=== PATIENT | female | born 1955 | race Hispanic/Latino ===

== ENCOUNTER 2019-05-10 09:25 | Outpatient (CLI) | payer BC ==
--- NOTE | 2019-05-10 09:46 | RAD ---
XR Chest Pa Lat STANDARD HISTORY: Acute bronchitis COMPARISON: None FINDINGS: The heart size is normal. The lungs are well expanded without focal areas of consolidation, pneumothorax or pleural effusions. There is a plate of linear atelectasis in the left perihilar region. IMPRESSION: No radiographic evidence of pneumonia.
== END 2019-05-10 09:26 | disposition home or self-care (01) ==
LOC: BICRAD 09:25
PROVIDERS: ATTEND Family Medicine
DX: J20.9 Acute bronchitis, unspecified (principal)
CPT/HCPCS: 71046

== ENCOUNTER 2019-08-09 14:40 | Outpatient (CLI) | payer BC ==
--- NOTE | 2019-08-09 15:44 | ULT ---
Bilateral renal ultrasound CLINICAL INDICATION: Left flank pain. COMPARISON: 04/22/2016 FINDINGS: Right kidney: There is no evidence of a renal mass, renal calculus, or hydronephrosis seen. The right kidney measures 11.5 cm x 4.9 cm. Left kidney: There is mild prominence of a left extrarenal pelvis without overt hydronephrosis. No re nal mass, calculus, or perinephric fluid collection is seen. No renal cortical thinning is identified.The left kidney measures 12.3 cm x 1.8 cm. Urinary bladder: Within normal limits for degree of distention with urinary bladder volume of 118.78 mL. No post void residual is seen. IMPRESSION: No evidence of hydronephrosis.
== END 2019-08-09 14:41 | disposition home or self-care (01) ==
LOC: BICULT 14:40
PROVIDERS: ATTEND Family Medicine
DX: N20.0 Calculus of kidney (principal)
CPT/HCPCS: 76770; 81003; 87086

== ENCOUNTER 2020-09-14 10:30 | Outpatient (CLI) | payer BC | END 2020-09-14 10:31 | disposition home or self-care (01) | LOC: LAB 10:30 | PROVIDERS: ATTEND Nurse Practitioner Family | DX: R30.0 Dysuria (principal) | CPT/HCPCS: 81001; 87077; 87086; 87186 ==

== ENCOUNTER 2020-12-19 09:46 | Outpatient (CLI) | payer MEDICARE, BC | END 2020-12-19 09:47 | disposition home or self-care (01) | LOC: BICRAD 09:46 | PROVIDERS: ATTEND Family Medicine | DX: M06.9 Rheumatoid arthritis, unspecified (principal); M19.042 Primary osteoarthritis, left hand; M19.032 Primary osteoarthritis, left wrist; M19.041 Primary osteoarthritis, right hand; M19.031 Primary osteoarthritis, right wrist ==

== ENCOUNTER 2021-10-27 08:23 | Outpatient (CLI) | payer MEDICARE | END 2021-10-27 08:24 | disposition home or self-care (01) | LOC: NM 08:23 | PROVIDERS: ATTEND Otolaryngology Plastic Surgery within the Head & Neck | DX: E34.9 Endocrine disorder, unspecified (principal) | CPT/HCPCS: 78072; A9500 ==

== ENCOUNTER 2023-06-09 08:23 | Outpatient (CLI) | payer MEDICARE ==
[2023-06-09] MEDS ORDERED: Iopamidol-370 76% 500 ML MDV (1 ML CHARGE) ONE (10:38)
== END 2023-06-09 08:24 | disposition home or self-care (01) ==
LOC: BICCT 08:23
PROVIDERS: ATTEND Physician Assistant Medical
DX: K86.2 Cyst of pancreas (principal); K59.00 Constipation, unspecified; R10.30 Lower abdominal pain, unspecified; R10.10 Upper abdominal pain, unspecified
CPT/HCPCS: 74178

== ENCOUNTER 2024-04-26 08:37 | Outpatient (CLI) | payer MEDICARE | END 2024-04-26 08:38 | disposition home or self-care (01) | LOC: BICMAMMO 08:37 | PROVIDERS: ATTEND Family Medicine | DX: Z12.31 Encounter for screening mammogram for malignant neoplasm of breast (principal); N95.9 Unspecified menopausal and perimenopausal disorder; M85.89 Other specified disorders of bone density and structure, multiple sites | CPT/HCPCS: 77063; 77067; 77080 ==

== ENCOUNTER 2025-04-27 07:58 | Outpatient (CLI) | payer MEDICARE | END 2025-04-27 07:59 | disposition home or self-care (01) | LOC: BICMAMMO 07:58 | PROVIDERS: ATTEND Family Medicine | DX: Z12.31 Encounter for screening mammogram for malignant neoplasm of breast (principal) | CPT/HCPCS: 77063; 77067 ==